=== PATIENT | female | born 1970 | race Hispanic/Latino ===

== ENCOUNTER 2018-11-06 23:03 | Emergency (ER) | payer OTHER ==
[2018-11-06 23:09] VITALS: BP 152/80
[2018-11-06 23:57] LABS: Basophils % (Auto) 0.3 % (0.0-1.8); Eosinophils # (Auto) 0.5 K/mm3 (0.0-0.4); Eosinophils % (Auto) 4.9 % (0.0-4.3); Hemoglobin 13.3 gm/dl (10.1-14.3); Lymphocytes # (Auto) 2.3 K/mm3 (1.2-5.4); Lymphocytes % (Auto) 22.5 % (13.4-35.0); Mean Corpuscular HGB Conc 34 % (30-34); Mean Corpuscular Volume 99 fl (79-97); Monocytes # (Auto) 0.6 K/mm3 (0.0-0.8); Monocytes % (Auto) 5.6 % (0.0-7.3); Platelet Count 342 K/mm3 (140-440); Red Blood Count 3.96 M/mm3 (3.65-5.03); Red Cell Distribution Width 14.2 % (13.2-15.2)
[2018-11-07 00:06] LABS: BUN/Creatinine Ratio 10; Blood Urea Nitrogen 9 mg/dL (7-17); Calcium 8.8 mg/dL (8.4-10.2); Hemolysis Index 14
--- NOTE | 2018-11-07 00:08 | XRay Report ---
FINAL REPORT EXAM: XR CHEST ROUTINE 2V HISTORY: Shortness of breath COMPARISON: Chest CT September 2018. FINDINGS:: Frontal and lateral views of the chest obtained. Cardiac silhouette is within normal limi ts. No focal consolidation or effusion. No pneumothorax. Visualized bony thorax is grossly intact. IMPRESSION:: No acute findings.
[2018-11-07] MEDS ORDERED: XYLOCAINE 1% MPF 5 mL INFILTRATI ONE (00:12)
[2018-11-07] MEDS ORDERED: DECADRON IM ONE (00:12)
[2018-11-07] MEDS ORDERED: ROCEPHIN IM ONE (00:12)
[2018-11-07] MEDS ORDERED: PROVENTIL IH ONE (00:12)
[2018-11-07] MEDS ORDERED: IBUPROFEN PO ONE (00:13)
--- NOTE | 2018-11-07 01:39 | Emergency Department Report ---
ED General Adult HPI - General Chief complaint: Dyspnea/Respdistress Stated complaint: DINO Time Seen by Provider: 11/07/18 00:11 Source: patient Mode of arrival: Ambulatory Limitations: No Limitations - History of Present Illness Initial comments: Patient is a 48-year-old white female with history of bronchitis who presents for cough wheezing, pt states out of albuterol saw pcp but only given decadron shot and erythromycin pt has taken 2 doses of antibiotics , pt states that she is still coughing , productive white yellow , with noc fever , and chest wall pain, Onset/Timin -: week(s) (to healthy in the lateral) Location: chest Radiation: non-radiation Severity scale (0 -10): 3 Quality: aching Consistency: intermittent Improves with: none Worsens with: movement, other (deep breathing) Associated Symptoms: chest pain, cough, fever/chills, shortness of breath - Related Data Previous Rx's Medication Instructions Recorded Last Taken Type Methocarbamol [Robaxin-750] 750 mg PO Q6HR PRN #20 tablet 10/05/18 Unknown Rx Naproxen [Naprosyn] 500 mg PO BID #20 tablet 10/05/18 Unknown Rx traMADol [Ultram] 50 mg PO Q6HR PRN #7 tablet 10/05/18 Unknown Rx ALBUTEROL NEB's [Proventil 0.083% 2.5 mg IH Q4H PRN #25 nebu 11/07/18 Unknown Rx NEBS] Codeine Phosphate/Guaifenesin 5 ml PO TID PRN #12 ml 11/07/18 Unknown Rx [Guaifenesin-Codeine Syrup] Ibuprofen 800 mg PO TID PRN #30 tablet 11/07/18 Unknown Rx Nebulizer Accessories [Sootheneb 1 each MC PRN PRN #1 each 11/07/18 Unknown Rx [id number] Adult Mask] Nebulizer [Aeroneb Go Nebulizer] 1 each MC PRN PRN #1 each 11/07/18 Unknown Rx Allergies Allergy/AdvReac Type Severity Reaction Status Date / Time doxycycline Allergy Rash Verified 11/06/18 23:20 ED Review of Systems ROS: Stated complaint: DINO Other details as noted in HPI Constitutional: fever, malaise. denies: chills ENT: ear pain, throat pain, congestion Respiratory: cough, shortness of breath, wheezing Cardiovascular: chest pain (with cough only ). denies: palpitations Endocrine: no symptoms reported Gastrointestinal: denies: abdominal pain, nausea, vomiting, diarrhea Genitourinary: denies: urgency, dysuria, discharge Musculoskeletal: denies: back pain, joint swelling, arthralgia Skin: denies: rash, lesions Neurological: denies: headache, weakness, paresthesias Psychiatric: denies: anxiety, depression Hematological/Lymphatic: denies: easy bleeding, easy bruising ED Past Medical Hx - Past Medical History Previous Medical History?: No - Surgical History Past Surgical History?: Yes Hx Cholecystectomy: Yes Additional Surgical History: Left knee surgery. Hysterectomy - Social History Smoking Status: Never Smoker Substance Use Type: None - Medications Home Medications: Home Medications Medication Instructions Recorded Confirmed Last Taken Type Methocarbamol [Robaxin-750] 750 mg PO Q6HR PRN #20 tablet 10/05/18 Unknown Rx Naproxen [Naprosyn] 500 mg PO BID #20 tablet 10/05/18 Unknown Rx traMADol [Ultram] 50 mg PO Q6HR PRN #7 tablet 10/05/18 Unknown Rx ALBUTEROL NEB's [Proventil 0.083% 2.5 mg IH Q4H PRN #25 nebu 11/07/18 Unknown Rx NEBS] Codeine Phosphate/Guaifenesin 5 ml PO TID PRN #12 ml 11/07/18 Unknown Rx [Guaifenesin-Codeine Syrup] Ibuprofen 800 mg PO TID PRN #30 tablet 11/07/18 Unknown Rx Nebulizer Accessories [Sootheneb 1 each MC PRN PRN #1 each 11/07/18 Unknown Rx [id number] Adult Mask] Nebulizer [Aeroneb Go Nebulizer] 1 each MC PRN PRN #1 each 11/07/18 Unknown Rx ED Physical Exam - General Limitations: No Limitations General appearance: alert, in no apparent distress - Head Head exam: Present: atraumatic, normocephalic - Eye Eye exam: Present: normal appearance. Absent: PERRL, EOMI Pupils: Absent: normal accommodation - ENT ENT exam: Present: normal exam, normal orophraynx, mucous membranes moist, TM's normal bilaterally (amenable to room), normal external ear exam - Expanded ENT Exam Expanded Ear exam: Present: normal external inspection Mouth exam: Present: normal external inspection Teeth exam: Present: normal inspection Throat exam: Positive: tonsillar erythema, tonsillomegaly. Negative: tonsillar exudate, R peritonsillar mass, L peritonsillar mass - Neck Neck exam: Present: normal inspection, full ROM. Absent: tenderness, meningismus, lymphadenopathy, thyromegaly - Respiratory Respiratory exam: Present: normal lung sounds bilaterally, wheezes, chest wall tenderness. Absent: respiratory distress, rhonchi, stridor, prolonged expiratory - Cardiovascular Cardiovascular Exam: Present: regular rate, normal rhythm, normal heart sounds. Absent: systolic murmur, diastolic murmur, rubs, gallop - GI/Abdominal GI/Abdominal exam: Present: soft, normal bowel sounds. Absent: distended, tenderness, rigid, bruit, hernia - Rectal Rectal exam: Present: deferred - Extremities Exam Extremities exam: Present: normal inspection, full ROM, normal capillary refill. Absent: tenderness - Back Exam Back exam: Present: normal inspection, full ROM. Absent: tenderness, CVA tenderness (R), CVA tenderness (L), muscle spasm, rash noted - Neurological Exam Neurological exam: Present: alert, oriented X3, CN II-XII intact, normal gait - Psychiatric Psychiatric exam: Present: normal affect, normal mood - Skin Skin exam: Present: warm, dry, intact, normal color. Absent: rash ED Course Vital Signs 11/06/18 23:08 Temperature 98.0 F Pulse Rate 92 H Respiratory 18 Rate Blood Pressure 152/80 O2 Sat by Pulse 98 Oximetry ED Medical Decision Making - Lab Data Result diagrams: 11/06/18 23:33 11/06/18 23:33 Lab Results 11/06/18 11/06/18 Range/Units 23:33 23:33 WBC 10.4 (4.5-11.0) K/mm3 RBC 3.96 (3.65-5.03) M/mm3 Hgb 13.3 (10.1-14.3) gm/dl Hct 39.0 (30.3-42.9) % MCV 99 H (79-97) fl MCH 34 H (28-32) pg MCHC 34 (30-34) % RDW 14.2 (13.2-15.2) % Plt Count 342 (140-440) K/mm3 Lymph % (Auto) 22.5 (13.4-35.0) % Thomas % (Auto) 5.6 (0.0-7.3) % Eos % (Auto) 4.9 H (0.0-4.3) % Baso % (Auto) 0.3 (0.0-1.8) % Lymph # 2.3 (1.2-5.4) K/mm3 Thomas # 0.6 (0.0-0.8) K/mm3 Eos # 0.5 H (0.0-0.4) K/mm3 Baso # 0.0 (0.0-0.1) K/mm3 Seg Neutrophils % 66.7 (40.0-70.0) % Seg Neutrophils # 6.9 (1.8-7.7) K/mm3 Sodium 137 (137-145) mmol/L Potassium 4.0 (3.6-5.0) mmol/L Chloride 100.0 (98-107) mmol/L Carbon Dioxide 23 (22-30) mmol/L Anion Gap 18 mmol/L BUN 9 (7-17) mg/dL Creatinine 0.9 (0.7-1.2) mg/dL Estimated GFR > 60 ml/min BUN/Creatinine Ratio 10 % Glucose 214 H (65-100) mg/dL Calcium 8.8 (8.4-10.2) mg/dL Troponin T < 0.010 (0.00-0.029) ng/mL - Radiology Data Radiology results: report reviewed, image reviewed FINAL REPORT PROCEDURE: XR ABDOMEN 1V AP TECHNIQUE: Abdominal series, including supine and upright AP views. HISTORY: abd pain COMPARISON: No prior studies are available for comparison. FINDINGS: Bowel gas pattern:Nonobstructive . Masses or calcifications:None . Bony structures:No significant abnormality . Pneumoperitoneum:None . Other:No significant findings . IMPRESSION: No acute abnormality. Transcribed By: CO Dictated By: GRACE SWIFT MD Electronically Authenticated By: GRACE SWIFT MD Signed Date/Time: 11/06/18 0230 - Medical Decision Making symptoms improved cxr: normal no infiltrate no opacities, wheezing is resolved, plan: dc to home , refill albuterol, cheratussin, ibuprofen, pt will complete erythromycin , and follow up with pcp in 2-3 days pt verbalized agreement and understanding of same pt dc to home in stable condition at this time. pt is now ambulatory without sob, wheezing is improved . Critical care attestation.: If time is entered above; I have spent that time in minutes in the direct care of this critically ill patient, excluding procedure time. ED Disposition Clinical Impression: Bronchitis Disposition: DC-01 TO HOME OR SELFCARE Is pt being admited?: No Does the pt Need Aspirin: No Condition: Stable Instructions: Chronic Bronchitis (ED), Acute Bronchitis (ED) Prescriptions: ALBUTEROL NEB's [Proventil 0.083% NEBS] 2.5 mg IH Q4H PRN #25 nebu PRN Reason: shortness of breath wheezing Codeine Phosphate/Guaifenesin [Guaifenesin-Codeine Syrup] 5 ml PO TID PRN #12 ml PRN Reason: Cough Ibuprofen 800 mg PO TID PRN #30 tablet PRN Reason: pain fever Nebulizer [Aeroneb Go Nebulizer] 1 each MC PRN PRN #1 each PRN Reason: as needed Nebulizer Accessories [Sootheneb [id number] Adult Mask] 1 each MC PRN PRN #1 each PRN Reason: as needed Referrals: PRIMARY CARE,MD [Primary Care Provider] - 3-5 Days Forms: Work/School Release Form(ED) Time of Disposition: 01:51
== END 2018-11-07 02:20 | disposition home or self-care (01) ==
LOC: ED 23:03
DX: J40 Bronchitis, not specified as acute or chronic (principal); Z90.49 Acquired absence of other specified parts of digestive tract; Z90.710 Acquired absence of both cervix and uterus; Z88.1 Allergy status to other antibiotic agents
CPT/HCPCS: 36415; 71046; 80048; 84484; 85025; 93005; 93010; 94640; 96372; 99284; J0696; J1100